=== PATIENT | male | born 1950 | race African-American/Black ===

== ENCOUNTER 2019-06-06 17:14 | Inpatient (IN) | payer OTHER ==
[~2019-06-06] VITALS: Ht 170.2 cm; Wt 60.4 kg
[2019-06-06] MEDS ORDERED: MORPHINE SULFATE 4 MG/ML CPJ (NOT FOR IM USE) IV STA (18:27)
[2019-06-06] MEDS ORDERED: ONDANSETRON HCL 4MG/2ML INJ IV STA (18:27)
[2019-06-06] MEDS ORDERED: ACETAMINOPHEN 325MG TABLET PO STA (18:27)
[2019-06-06] MEDS ORDERED: SODIUM CHLORIDE 0.9% 1000ML BAG (SEPSIS BOLUS) IV ONE (18:30)
[2019-06-06 19:14] LABS: BASOPHILS % 0.7 % (0.0-2.0); EOSINOPHILS % 1.2 % (0.0-5.0); HEMATOCRIT. 43.1 % (42.0-52.0); HEMOGLOBIN. 14.7 g/dL (14.0-18.0); LYMPHOCYTES % 37.8 % (20.0-50.0); MEAN CORPUSCULAR HEMOGLOBIN 32.6 pg (28.0-32.0); MEAN CORPUSCULAR VOLUME 95.6 fL (80.0-94.0); MEAN PLATELET VOLUME 9.4 fl (7.4-10.4); MONOCYTES % 9.8 % (2.0-8.0); NEUTROPHILS % 50.5 % (40.0-76.0); PLATELET 199 x1000/uL (130-400); RED CELL DISTRIBUTION WIDTH 15.7 % (11.6-14.6)
[2019-06-06 19:23] LABS: CHLORIDE 106 mEq/L (98-107)
[2019-06-06 19:24] LABS: INR 0.9; PROTHROMBIN TIME 10.3 sec (9.6-11.0)
[2019-06-06 19:30] LABS: ETHANOL BLOOD 16 mg/dL
[2019-06-06 20:00] LABS: *AMPHETAMINES SCREEN URINE NEGATIVE (NEGATIVE); *BARBITURATES SCREEN URINE NEGATIVE (NEGATIVE); *BENZODIAZEPINES SCREEN URINE NEGATIVE (NEGATIVE); *COCAINE SCREEN URINE NEGATIVE (NEGATIVE); METHADONE URINE SCREEN NEGATIVE (NEGATIVE)
[2019-06-06 20:01] LABS: CANNABINOID URINE SCREEN NEGATIVE (NEGATIVE); OPIATES URINE SCREEN NEGATIVE (NEGATIVE); PHENCYCLIDINE URINE SCREEN NEGATIVE (NEGATIVE)
[2019-06-06] MEDS ORDERED: DEXTROSE 50% WATER 50ML SYRINGE IV ONE ×2 (20:37→20:45)
[2019-06-06] MEDS ORDERED: ASPIRIN 325MG EC TABLET PO ONE (20:45)
[2019-06-06] MEDS ORDERED: LORAZEPAM 2MG/ML CPJ IV ONE (20:45)
[2019-06-07] VITALS (7 sets, daily range): BP systolic 104–167; BP diastolic 59–94
[2019-06-07] MEDS ORDERED: MAGNESIUM/ALUMINUM HYDROXIDE/SIMETHICONE 30ML UDC PO PRN (01:00)
[2019-06-07] MEDS ORDERED: DIPHENHYDRAMINE 50MG/ML VIAL IV PRN (01:00)
[2019-06-07] MEDS ORDERED: HYDRALAZINE 20MG/ML VIAL IV PRN ×2 (01:00→04:45)
[2019-06-07] MEDS ORDERED: ACETAMINOPHEN 325MG TABLET PO PRN ×2 (01:00)
[2019-06-07] MEDS ORDERED: LORAZEPAM 2MG/ML CPJ IV PRN (01:00)
[2019-06-07] MEDS ORDERED: CLONIDINE 0.1MG TABLET PO PRN (01:00)
[2019-06-07] MEDS ORDERED: ONDANSETRON HCL 4MG/2ML INJ IV PRN (01:00)
[2019-06-07 08:30] LABS: BASOPHILS % 0.9 % (0.0-2.0); EOSINOPHILS % 1.8 % (0.0-5.0); HEMATOCRIT. 50.2 % (42.0-52.0); HEMOGLOBIN. 16.8 g/dL (14.0-18.0); LYMPHOCYTES % 35.2 % (20.0-50.0); MEAN CORPUSCULAR VOLUME 95.4 fL (80.0-94.0); MONOCYTES % 9.3 % (2.0-8.0); NEUTROPHILS % 52.8 % (40.0-76.0); PLATELET 231 x1000/uL (130-400); RED BLOOD CELL COUNT 5.26 mill/uL (4.7-6.1); RED CELL DISTRIBUTION WIDTH 15.9 % (11.6-14.6)
[2019-06-07 08:38] LABS: CHLORIDE 109 mEq/L (98-107)
[2019-06-07] MEDS: ASPIRIN 81MG EC TABLET PO SCH (13:36)
[2019-06-07] MEDS: AMLODIPINE 5MG TABLET PO SCH (13:36)
[2019-06-07] MEDS ORDERED: MVI, ADULT NO.1 10 ML, FOLIC ACID 1 MG, THIAMINE HCL 100 MG in SODIUM CHLORIDE 0.9% 1,0... IV ONE ×4 (14:00)
[2019-06-07] MEDS: SODIUM CHLORIDE 0.9% 1,000 ML IV SCH (22:00)
[2019-06-08] VITALS (11 sets, daily range): BP systolic 121–142; BP diastolic 67–90
[2019-06-08 07:16] LABS: BASOPHILS % 1.1 % (0.0-2.0); EOSINOPHILS % 0.9 % (0.0-5.0); HEMATOCRIT. 44.4 % (42.0-52.0); HEMOGLOBIN. 15.2 g/dL (14.0-18.0); LYMPHOCYTES % 31.8 % (20.0-50.0); MEAN CORPUSCULAR HEMOGLOBIN 32.4 pg (28.0-32.0); MEAN CORPUSCULAR VOLUME 94.6 fL (80.0-94.0); MEAN PLATELET VOLUME 9.3 fl (7.4-10.4); MONOCYTES % 9.5 % (2.0-8.0); NEUTROPHILS % 56.7 % (40.0-76.0); PLATELET 226 x1000/uL (130-400); RED CELL DISTRIBUTION WIDTH 15.6 % (11.6-14.6)
[2019-06-08 08:31] LABS: CHLORIDE 108 mEq/L (98-107)
[2019-06-08] MEDS: ASPIRIN 81MG EC TABLET PO SCH (09:24)
[2019-06-08] MEDS: AMLODIPINE 5MG TABLET PO SCH (09:24)
[2019-06-08] MEDS ORDERED: POTASSIUM CHLORIDE 20MEQ/PACKET PO NR ×2 (10:00→19:30)
[2019-06-08] MEDS ORDERED: POTASSIUM CHLORIDE 20MEQ TABLET SR PO ONE (10:00)
[2019-06-08] MEDS: SODIUM CHLORIDE 0.9% 1,000 ML IV SCH (11:24)
[2019-06-09] VITALS (13 sets, daily range): BP systolic 135–166; BP diastolic 55–94
[2019-06-09] MEDS: SODIUM CHLORIDE 0.9% 1,000 ML IV SCH (01:05)
[2019-06-09 08:40] LABS: BASOPHILS % 1.1 % (0.0-2.0); EOSINOPHILS % 0.8 % (0.0-5.0); HEMATOCRIT. 47.5 % (42.0-52.0); HEMOGLOBIN. 15.8 g/dL (14.0-18.0); LYMPHOCYTES % 35.4 % (20.0-50.0); MEAN CORPUSCULAR HEMOGLOBIN 31.7 pg (28.0-32.0); MEAN CORPUSCULAR VOLUME 95.2 fL (80.0-94.0); MEAN PLATELET VOLUME 8.8 fl (7.4-10.4); MONOCYTES % 6.9 % (2.0-8.0); NEUTROPHILS % 55.8 % (40.0-76.0); PLATELET 270 x1000/uL (130-400); RED BLOOD CELL COUNT 4.99 mill/uL (4.7-6.1); RED CELL DISTRIBUTION WIDTH 16.1 % (11.6-14.6)
[2019-06-09 08:51] LABS: CHLORIDE 106 mEq/L (98-107)
[2019-06-09] MEDS: ASPIRIN 81MG EC TABLET PO SCH (08:59)
[2019-06-09] MEDS: AMLODIPINE 5MG TABLET PO SCH (08:59)
[2019-06-10] VITALS (12 sets, daily range): BP systolic 102–159; BP diastolic 67–100
[2019-06-10] MEDS: ASPIRIN 81MG EC TABLET PO SCH (10:02)
[2019-06-10] MEDS: AMLODIPINE 5MG TABLET PO SCH (10:02)
[2019-06-11] VITALS (12 sets, daily range): BP systolic 118–165; BP diastolic 62–88
[2019-06-11] MEDS: ASPIRIN 81MG EC TABLET PO SCH (09:08)
[2019-06-11] MEDS: AMLODIPINE 5MG TABLET PO SCH (09:08)
[2019-06-11] MEDS: LOSARTAN POTASSIUM 50 MG TABLET PO SCH (09:18)
[2019-06-12] VITALS (8 sets, daily range): BP systolic 106–151; BP diastolic 62–93
[2019-06-12] MEDS: ASPIRIN 81MG EC TABLET PO SCH (10:13)
[2019-06-12] MEDS: LOSARTAN POTASSIUM 50 MG TABLET PO SCH (10:13)
[2019-06-12] MEDS: AMLODIPINE 5MG TABLET PO SCH (10:13)
== END 2019-06-12 15:27 | disposition home or self-care (01) | DRG 640 ==
LOC: ER 17:14 → CANBEDREQ 18:30 → 3WST 21:37 → ENRESERV 06-07 11:02 → 3WST 06-07 17:56
PROVIDERS: ADMIT Internal Medicine; ATTEND Internal Medicine
DX: E87.6 Hypokalemia (principal); G93.41 Metabolic encephalopathy; I10 Essential (primary) hypertension; F29 Unspecified psychosis not due to a substance or known physiological condition; R94.31 Abnormal electrocardiogram [ECG] [EKG]; Z86.73 Personal history of transient ischemic attack (TIA), and cerebral infarction without residual deficits; Z59.0 Homelessness; Z79.899 Other long term (current) drug therapy
CPT/HCPCS: 36415; 71045; 80048; 80053; 80305; 80307; 80320; 80329; 82962; 84145; 84443; 84484; 85025; 93005; 93306; 97110; 97116; 97162; 99285; J0360; J2060; J3411; J3490; J7030; G0480